=== PATIENT | female | born 1950 ===

== ENCOUNTER 2020-07-27 07:19 | Day surgery (SDC) | payer MEDICARE, OTHER ==
[2020-07-26 13:13] LABS: BLOOD UREA NITROGEN,BUN 12 mg/dL (7.0-18.0); CARBON DIOXIDE,CO2 29.8 mmol/L (21.0-32.0); CHLORIDE,CL 102 mmol/L (98-107); GLUCOSE RANDOM 101 mg/dL (74-106); POTASSIUM,K 4.2 mmol/L (3.5-5.1); SODIUM,NA 139 mmol/L (136-145)
[~2020-07-27 07:19] MED LIST: Lactated Ringers 1,000 ML IV SCH
[2020-07-27] MEDS ORDERED: Propofol 200 MG/20 ML SDV ONE (08:42)
[2020-07-27] MEDS ORDERED: Midazolam 1 MG/ML 2 ML SDV ONE (08:42)
[2020-07-27] MEDS ORDERED: fentaNYL 100 MCG/2 ML SDV ONE (08:42)
[2020-07-27] MEDS ORDERED: Rocuronium Bromide 50 MG/5 ML Syringe ONE (08:44)
[2020-07-27] MEDS ORDERED: Ketorolac 30 MG/ML SDV ONE (08:44)
[2020-07-27] MEDS ORDERED: Glycopyrrolate 0.2 MG/ML SDV ONE (08:44)
[2020-07-27] MEDS ORDERED: Ondansetron 4 MG/2 ML SDV ONE (08:44)
[2020-07-27] MEDS ORDERED: Lidocaine 2% 5 ML SDV ONE (08:44)
--- NOTE | 2020-07-27 08:55 | PCM.PREANE ---
Preanesthetic Assessment - Anesthesia/Transfusion/Family Hx Anesthesia History: Prior Anesthesia Without Reaction Family History of Anesthesia Reaction: No Transfusion History: No Prior Transfusion(s) - Review of Systems General: No Symptoms Pulmonary: No Symptoms Cardiovascular: No Symptoms Gastrointestinal: No Symptoms Neurological: No Symptoms Other: Reports: None - Physical Assessment NPO Status Date: 07/26/20 Vital Signs: Last Vital Signs Temp 97.3 F 07/27/20 07:41 Pulse 72 07/27/20 07:41 Resp 16 07/27/20 07:41 BP 107/66 07/27/20 07:41 Pulse Ox 96 07/27/20 07:41 Height: 5 ft 8 in Weight: 86.183 kg ASA Class: 3 Airway Class: Mallampati = 2 Dentition: Reports: Edentulous ROM/Head Extension: Full Lungs: Clear to Auscultation, Normal Respiratory Effort Cardiovascular: Regular Rate, Regular Rhythm - Lab Values: Laboratory Last Values WBC 5.04 K/uL (4.0-11.0) 07/26/20 12:36 RBC 4.75 M/uL (4.30-5.90) 07/26/20 12:36 Hgb 13.3 g/dL (12.0-16.0) 07/26/20 12:36 Hct 42.5 % (36.0-46.0) 07/26/20 12:36 MCV 89.5 fL (80.0-98.0) 07/26/20 12:36 MCH 28.0 pg (27.0-32.0) 07/26/20 12:36 MCHC 31.3 g/dL (31.0-37.0) 07/26/20 12:36 RDW Std Deviation 47.1 fl (28.0-62.0) 07/26/20 12:36 RDW Coeff of Lilly 14 % (11.0-15.0) 07/26/20 12:36 Plt Count 194 K/uL (150-400) 07/26/20 12:36 MPV 10.40 fL (7.40-12.00) 07/26/20 12:36 Nucleated RBC % 0.0 /100WBC 07/26/20 12:36 Nucleated RBCs # 0 K/uL 07/26/20 12:36 Sodium 139 mmol/L (136-145) 07/26/20 12:33 Potassium 4.2 mmol/L (3.5-5.1) 07/26/20 12:33 Chloride 102 mmol/L (98-107) 07/26/20 12:33 Carbon Dioxide 29.8 mmol/L (21.0-32.0) 07/26/20 12:33 BUN 12 mg/dL (7.0-18.0) 07/26/20 12:33 Creatinine 0.8 mg/dL (0.6-1.0) 07/26/20 12:33 Est Cr Clr Drug Dosing 66.01 mL/min 07/26/20 12:33 Estimated GFR (MDRD) > 60.0 ml/min 07/26/20 12:33 Glucose 101 mg/dL (74-106) 07/26/20 12:33 Calcium 9.8 mg/dL (8.5-10.1) 07/26/20 12:33 SARS-CoV-2 RNA (BERONICA) NEGATIVE (NEGATIVE) 07/27/20 07:30 Blood Type A NEGATIVE 07/26/20 12:33 Antibody Screen NEGATIVE 07/26/20 12:33 - Allergies Allergies/Adverse Reactions: Allergies Allergy/AdvReac Type Severity Reaction Status Date / Time acetaminophen [From Percocet] Allergy Itching Verified 07/26/20 11:50 oxycodone [From Percocet] Allergy Itching Verified 07/26/20 11:50 - Blood Blood Available: Yes - Anesthesia Plan Pre-Op Medication Ordered: None - Acknowledgements Anesthesia Type Planned: General Anesthesia Pt an Appropriate Candidate for the Planned Anesthesia: Yes Alternatives and Risks of Anesthesia Discussed w Pt/Guardian: Yes Pt/Guardian Understands and Agrees with Anesthesia Plan: Yes Additional Comments: PMH: cad- s/p cabg, s/p CEA, COPD on home O2, HTN- given new Rx for ACEI last week to be added to her metopralol but she has not started it yet, cleared for 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 PLAN: ga/LMA PreAnesthesia Questionnaire HEENT History: Reports: Hard of Hearing, Impaired Vision Other HEENT History: wears glasses Cardiovascular History: Reports: Angina, High Cholesterol, Hypertension Respiratory History: Reports: COPD, Sleep Apnea, SOB Other Respiratory History: has CPAP machine; doesn't use regularly, on oxygen as needed Gastrointestinal History: Reports: GERD Genitourinary History: Reports: None 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: Musculoskeletal History: Reports: Arthritis, Back Pain, Chronic Other Musculoskeletal History: states has herniated disc Neurological History: Reports: None Psychiatric History: Reports: Depression Hematologic History: Reports: None Immunologic History: Reports: None Oncologic (Cancer) History: Reports: None Dermatologic History: Reports: None - Infectious Disease History Infectious Disease History: Reports: Chicken Pox Other Infectious Disease History: when a child - Past Surgical History HEENT Surgical History: Reports: None Cardiovascular Surgical History: Reports: Carotid Endarterectomy Other Cardiovascular Surgeries/Procedures: CABG x4 2011 GI Surgical History: Reports: Appendectomy, Cholecystectomy Female Surgical History: Reports: Tubal Ligation Endocrine Surgical History: Reports: None Neurological Surgical History: Reports: None - SUBSTANCE USE Tobacco Use Status *Q: Former Tobacco User - HOME MEDS Home Medications: Home Meds Albuterol Sulfate [Albuterol Sulfate Hfa] 1 puff INH ASDIRECTED PRN 07/22/20 [History] Citalopram Hydrobromide [Celexa] 40 mg PO DAILY 07/22/20 [History] Clopidogrel Bisulfate [Clopidogrel] 75 mg PO DAILY 07/22/20 [History] Fluticasone Propion/Salmeterol [Wixela 250-50 Inhub] 1 inhalation INH BID 07/22/20 [History] Metoprolol Succinate 50 mg PO DAILY 07/22/20 [History] Nitroglycerin [Nitro-Dur 0.2 MG/Hr] 1 patch TRDERM DAILY 07/22/20 [History] Rosuvastatin Calcium 40 mg PO DAILY 07/22/20 [History] - CURRENT (IN HOUSE) MEDS Current Meds: Current Medications Lactated Ringer's (Ringers, Lactated) 1,000 mls @ 125 mls/hr IV ASDIRECTED ARPIT Discontinued Medications Fentanyl (Sublimaze) Confirm Administered Dose 100 mcg .ROUTE .STK-MED ONE Stop: 07/27/20 08:43 Glycopyrrolate (Robinul) Confirm Administered Dose 0.8 mg .ROUTE .STK-MED ONE Stop: 07/27/20 08:45 Ketorolac Tromethamine (Toradol) Confirm Administered Dose 30 mg .ROUTE .STK-MED ONE Stop: 07/27/20 08:45 Lidocaine (Xylocaine-Mpf 2%) Confirm Administered Dose 5 ml .ROUTE .STK-MED ONE Stop: 07/27/20 08:45 Midazolam HCl (Versed 1 Mg/Ml) Confirm Administered Dose 2 mg .ROUTE .STK-MED ONE Stop: 07/27/20 08:43 Ondansetron HCl (Zofran) Confirm Administered Dose 4 mg .ROUTE .STK-MED ONE Stop: 07/27/20 08:45 Propofol (Diprivan 20 Ml) Confirm Administered Dose 200 mg .ROUTE .STK-MED ONE Stop: 07/27/20 08:43 Rocuronium Erie (Rocuronium Erie) Confirm Administered Dose 50 mg .ROUTE .STK-MED ONE Stop: 07/27/20 08:45
[2020-07-27] MEDS ORDERED: Lidocaine 1% with EPINEPHrine 1:100,000 20 ML MDV ONE (09:42)
--- NOTE | 2020-07-27 10:25 | PCM.OPNOTE ---
- General Post-Op/Procedure Note Date of Surgery/Procedure: 07/27/20 Operative Procedure(s): Diagnostic hysteroscopy. Operative hysteroscopy with polypectomy. Dilation & curettage Findings: Single endometrial polyp amongst atrophic endometrium Atrophic vagina Pre Op Diagnosis: 70yo with postmenopausal bleeding. Endometrial polyp on endometrial biopsy Post-Op Diagnosis: 70yo with postmenopausal bleeding. Endometrial polyp on endometrial biopsy Anesthesia Technique: General LMA, Local Primary Surgeon: Erin Tadeo Anesthesia Provider: Jagjit Frye Pathology: Endometrial polyp, endometrial curettings Fluid Replacement, Intraop: 800 EBL in mLs: 5 Complications: None Condition: Good Free Text/Narrative:: Hysteroscopic fluid deficit 200cc NS
--- NOTE | 2020-07-27 11:39 | PCM.POSTAN ---
POST ANESTHESIA ASSESSMENT - MENTAL STATUS Mental Status: Alert, Oriented - VITAL SIGNS Vital Signs: Last Vital Signs Temp 97.3 F 07/27/20 10:36 Pulse 62 07/27/20 11:06 Resp 15 07/27/20 11:06 BP 125/70 07/27/20 11:06 Pulse Ox 95 07/27/20 11:06 - RESPIRATORY Respiratory Status: Respiratory Rate WNL, Airway Patent, O2 Saturation Stable - CARDIOVASCULAR CV Status: Pulse Rate WNL, Blood Pressure Stable - GASTROINTESTINAL GI Status: No Symptoms - POST OP HYDRATION Hydration Status: Adequate & Stable
--- NOTE | 2020-07-27 11:39 | PCM48HPAN ---
Post Anesthesia Note - EVALUATION WITHIN 48HRS OF ANESTHETIC Vital Signs in Normal Range: Yes Patient Participated in Evaluation: Yes Respiratory Function Stable: Yes Airway Patent: Yes Cardiovascular Function Stable: Yes Hydration Status Stable: Yes Pain Control Satisfactory: Yes Nausea and Vomiting Control Satisfactory: Yes Mental Status Recovered: Yes Vital Signs: Last Vital Signs Temp 97.3 F 07/27/20 10:36 Pulse 62 07/27/20 11:06 Resp 15 07/27/20 11:06 BP 125/70 07/27/20 11:06 Pulse Ox 95 07/27/20 11:06
--- NOTE | 2020-07-28 10:18 | OR ---
SURGEON: Erin Tadeo MD DATE OF PROCEDURE: 07/27/2020 PREOPERATIVE DIAGNOSES: 1. Postmenopausal bleeding. 2. Endometrial polyp on biopsy. POSTOPERATIVE DIAGNOSES: 1. Postmenopausal bleeding. 2. Endometrial polyp on biopsy. PROCEDURES: Diagnostic hysteroscopy, operative hysteroscopy with polypectomy, dilation and curettage. PRIMARY SURGEON: Erin Tadeo MD. ANESTHESIA: LMA and paracervical block. IV FLUIDS: 800 mL. ESTIMATED BLOOD LOSS: 5 mL. HYSTEROSCOPIC FLUID DEFICIT: 200 mL normal saline. FINDINGS: 1. Anteverted uterus that sounded to 7 cm. Pedunculated polyp within the endometrial canal. 2. Otherwise atrophic endometrium. INDICATIONS: This is a 70-year-old who presented to clinic with postmenopausal bleeding. An endometrial biopsy was performed, which showed benign endometrial polyp. The pelvic ultrasound was obtained, suspicious for additional polyps. The patient desired hysteroscopy for diagnosis and treatment of her endometrial polyps. DESCRIPTION OF PROCEDURE: The patient was taken to the operating room where LMA was obtained. She was placed in the dorsal lithotomy position with legs in Giovany-type stirrups. She was prepared and draped in normal sterile fashion. A time-out procedure was performed. A Graves speculum was inserted into the vagina. Anterior lip of the cervix was grasped with an Allis clamp. 10 mL of 1% lidocaine with epinephrine was injected into the cervix for anesthesia. The uterus sounded to 7 cm. The cervix was sequentially dilated with Hegar dilators to a size 7 to accommodate the hysteroscope. A 5 mm hysteroscope was introduced under direct visualization. The above findings were identified. The biopsy forceps were introduced through the hysteroscope and used to remove the polyps in the endometrium. The hysteroscope was withdrawn and a sharp curettage was performed. Minimal bleeding was noted. The Allis clamp was removed. The speculum was removed from the vagina. The patient tolerated the procedure well. All instrument and sponge counts were correct x2. [id number] / MODL /[id number]
== END 2020-07-27 11:44 | disposition home or self-care (01) ==
LOC: MW.SDS 07:19
PROVIDERS: ATTEND Obstetrics & Gynecology
DX: N84.0 Polyp of corpus uteri (principal); Z01.812 Encounter for preprocedural laboratory examination; Z20.828 Contact with and (suspected) exposure to other viral communicable diseases; J44.9 Chronic obstructive pulmonary disease, unspecified; I10 Essential (primary) hypertension; E78.00 Pure hypercholesterolemia, unspecified; R41.82 Altered mental status, unspecified; Z87.891 Personal history of nicotine dependence; Z79.899 Other long term (current) drug therapy; Z88.8 Allergy status to other drugs, medicaments and biological substances
CPT/HCPCS: 36415; 58558; 80048; 85027; 86850; 86900; 86901; 87635; 88305; J1885; J2001; J2250; J2405; J2704; J3010; J3490; J7120; 00952; U0002